=== PATIENT | female | born 1995 | race Caucasian/White ===

== ENCOUNTER 2017-03-30 20:27 | Emergency (ER) | payer OTHER ==
[~2017-03-30] VITALS: Ht 160 cm; Wt 46.6 kg
[2017-03-30 21:56] VITALS: BP 127/72
== END 2017-03-30 22:09 | disposition home or self-care (01) ==
LOC: EME 20:27
DX: M79.671 Pain in right foot (principal); M79.672 Pain in left foot; R20.0 Anesthesia of skin
CPT/HCPCS: 99281; 99283